=== PATIENT | female | born 1960 | race Caucasian/White ===

== ENCOUNTER 2020-06-04 16:37 | Inpatient (IN) | payer OTHER ==
[~2020-06-04 16:37] MED LIST: COLACE100 MG PO; CRANBERRY300 MG PO; METOPROLOL PO; PRILOSEC20 M1 PO; SOTALOL80 MG PO; SYNTHROID150 MCG PO; XARELTO20 MG PO; ZESTORETIC 10-1 EACH PO
[2020-06-04 17:40] LABS: BASOPHIL 0.3 % (0-2); EOSINOPHIL 1.2 % (0-5); HCT 36.9 % (37.0-47.0); LYMPHOCYTE 17.9 % (15-48); MCH 29.6 pg (25.0-31.0); MCHC 32.5 g/dL (32.0-36.0); MCV 90.9 fL (78.0-100.0); MONOCYTE 6.8 % (0-12); MPV 9.9 fL (6.0-9.5); NEUTROPHIL 73.4 % (41-80); NRBC 0; PLT 288 K/uL (150-400); RBC 4.06 M/uL (4.20-5.40); RDW 13.3 % (11.5-14.0)
[2020-06-04 17:45] LABS: BILIRUBIN NEGATIVE (NEGATIVE); BLOOD TRACE-LYSED Ery/uL (NEGATIVE); CLARITY CLEAR (CLEAR); COLOR YELLOW (YELLOW); GLUCOSE (U) NORMAL (NORMAL); LEUKOCYTES NEGATIVE Leu/uL (NEGATIVE); NITRITE NEGATIVE (NEGATIVE); PROTEIN NEGATIVE (NEGATIVE); UROBILINOGEN 0.2 mg/dL (0.2-1.0)
[2020-06-04 17:51] LABS: ALBUMIN 3.9 g/dL (3.4-5.0); BILIRUBIN - TOTAL 0.4 mg/dL (0.2-1.0); BUN/CREAT RATIO (CALC) 15.7 RATIO; CREATININE 0.83 mg/dL (0.51-0.95); POTASSIUM 3.9 mmol/L (3.5-5.1); TOTAL PROTEIN 7.9 g/dL (6.4-8.2)
[2020-06-04 17:53] LABS: BACTERIA 1+; SQUAMOUS EPITHELIAL CELLS RARE; URINARY RBC RARE; URINARY WBC RARE
[2020-06-04 21:41] LABS: CORONAVIRUS 2019 SARS-COV-2 NEGATIVE (NEGATIVE); INFLUENZA A NAA NEGATIVE (NEGATIVE)
[2020-06-04] MEDS ORDERED: LIPITOR 10MG TA10 MG PO (22:55)
[2020-06-04] MEDS ORDERED: NORVASC5 MG PO (22:55)
[2020-06-04] MEDS ORDERED: ASPIRIN EC81 MG PO (22:55)
[2020-06-04] MEDS ORDERED: METFORMIN HCL500 MG PO (22:56)
[2020-06-04] MEDS ORDERED: VITAMIN D3125 MC1 PO (22:58)
[2020-06-04] MEDS ORDERED: COLACE100 MG PO (22:59)
[2020-06-04] MEDS ORDERED: SYNTHROID125 MCG PO (22:59)
[2020-06-04] MEDS ORDERED: JANUVIA50 MG PO (23:00)
[2020-06-04] MEDS ORDERED: PRINIVIL20 MG PO (23:01)
[2020-06-05 05:55] LABS: BASOPHIL 0.3 % (0-2); EOSINOPHIL 1.2 % (0-5); HCT 35.4 % (37.0-47.0); HGB 11.4 g/dl (12.5-16.0); LYMPHOCYTE 18.4 % (15-48); MCH 29.5 pg (25.0-31.0); MCHC 32.2 g/dL (32.0-36.0); MCV 91.5 fL (78.0-100.0); MONOCYTE 5.9 % (0-12); MPV 10.1 fL (6.0-9.5); NEUTROPHIL 73.8 % (41-80); NRBC 0; PLT 281 K/uL (150-400); RBC 3.87 M/uL (4.20-5.40); RDW 13.6 % (11.5-14.0); WBC 11.1 K/uL (4.0-10.5)
[2020-06-05 06:25] LABS: BUN/CREAT RATIO (CALC) 17.1 RATIO; CREATININE 0.76 mg/dL (0.51-0.95); POTASSIUM 3.8 mmol/L (3.5-5.1)
--- NOTE | 2020-06-05 11:38 | NUR ---
PT LIVES ALONE; NO DME: DRIVES SELF;
--- NOTE | 2020-06-05 12:06 | NUR ---
PT DECLINES NEEDING D/C NEEDS;WILL CONTINUE TO FOLLOW
[2020-09-17] MEDS ORDERED: SYNTHROID150 MCG PO (13:14)
[2020-09-17] MEDS ORDERED: PRILOSEC OTC20 MG PO (13:15)
[2020-09-17] MEDS ORDERED: PROBIOTIC1 EACH PO (13:15)
== END 2020-06-05 18:28 | disposition home or self-care (01) | DRG 389 ==
LOC: FER 16:37 → FMS 21:03
PROVIDERS: Emergency Medicine; Nurse Practitioner; Nurse Practitioner Family; ADMIT Internal Medicine
PROC: 0D9670Z Drainage of Stomach with Drainage Device, Via Natural or Artificial Opening (ICD-10-PCS; principal; 2020-06-04)
DX: K56.609 Unspecified intestinal obstruction, unspecified as to partial versus complete obstruction (principal); Z68.41 Body mass index [BMI] 40.0-44.9, adult; R11.2 Nausea with vomiting, unspecified; E11.9 Type 2 diabetes mellitus without complications; I48.0 Paroxysmal atrial fibrillation; I10 Essential (primary) hypertension; E03.9 Hypothyroidism, unspecified; Z20.822 Contact with and (suspected) exposure to COVID-19; E04.9 Nontoxic goiter, unspecified; E66.01 Morbid (severe) obesity due to excess calories; K58.2 Mixed irritable bowel syndrome; F41.1 Generalized anxiety disorder; K21.9 Gastro-esophageal reflux disease without esophagitis; Z79.82 Long term (current) use of aspirin; Z87.891 Personal history of nicotine dependence; Z88.5 Allergy status to narcotic agent; Z79.899 Other long term (current) drug therapy; Z79.84 Long term (current) use of oral hypoglycemic drugs
CPT/HCPCS: 36415; 74018; 74250; 80048; 80053; 81001; 82150; 83690; 85025; C9113; J1170; J2405; J2550; J7030; Q9967; U0002

== ENCOUNTER 2020-07-06 00:52 | Emergency (ER) | payer OTHER ==
[~2020-07-06 00:52] MED LIST changes: +ASPIRIN EC81 MG PO; +JANUVIA50 MG PO; +LIPITOR 10MG TA10 MG PO; +METFORMIN HCL500 MG PO; +NORVASC5 MG PO; +PRINIVIL20 MG PO; +SYNTHROID125 MCG PO; +VITAMIN D3125 MC1 PO
[2020-07-06 01:55] LABS: BASOPHIL 0.5 % (0-2); EOSINOPHIL 2.7 % (0-5); HCT 34.3 % (37.0-47.0); HGB 11.2 g/dl (12.5-16.0); LYMPHOCYTE 29.2 % (15-48); MCH 29.9 pg (25.0-31.0); MCHC 32.7 g/dL (32.0-36.0); MCV 91.7 fL (78.0-100.0); MONOCYTE 7.2 % (0-12); MPV 9.8 fL (6.0-9.5); NEUTROPHIL 59.9 % (41-80); NRBC 0; PLT 238 K/uL (150-400); RBC 3.74 M/uL (4.20-5.40); RDW 13.4 % (11.5-14.0); WBC 10.7 K/uL (4.0-10.5)
[2020-07-06 02:13] LABS: ALBUMIN 3.7 g/dL (3.4-5.0); BILIRUBIN - TOTAL 0.2 mg/dL (0.2-1.0); BUN/CREAT RATIO (CALC) 18.9 RATIO; CREATININE 0.9 mg/dL (0.51-0.95); GLOBULIN (CALCULATION) 3.6 g/dL; POTASSIUM 3.9 mmol/L (3.5-5.1); TOTAL PROTEIN 7.3 g/dL (6.4-8.2)
[2020-09-17] MEDS ORDERED: SYNTHROID150 MCG PO (13:14)
[2020-09-17] MEDS ORDERED: PRILOSEC OTC20 MG PO (13:15)
[2020-09-17] MEDS ORDERED: PROBIOTIC1 EACH PO (13:15)
== END 2020-07-06 03:08 | disposition home or self-care (01) ==
LOC: FER 00:52
PROVIDERS: Emergency Medicine Emergency Medical Services
DX: T38.3X1A Poisoning by insulin and oral hypoglycemic [antidiabetic] drugs, accidental (unintentional), initial encounter (principal); I48.91 Unspecified atrial fibrillation; E11.9 Type 2 diabetes mellitus without complications; I10 Essential (primary) hypertension; Z87.19 Personal history of other diseases of the digestive system; Z88.5 Allergy status to narcotic agent; Z79.82 Long term (current) use of aspirin; Z79.899 Other long term (current) drug therapy; Z79.84 Long term (current) use of oral hypoglycemic drugs
CPT/HCPCS: 36415; 80053; 85025; 93005

== ENCOUNTER 2020-07-23 08:04 | Inpatient (IN) | payer OTHER ==
[2020-07-23 09:45] LABS: BASOPHIL 0.3 % (0-2); EOSINOPHIL 0.2 % (0-5); HCT 39.2 % (37.0-47.0); LYMPHOCYTE 13.4 % (15-48); MCH 29.8 pg (25.0-31.0); MCHC 33.2 g/dL (32.0-36.0); MCV 89.9 fL (78.0-100.0); MONOCYTE 4.5 % (0-12); MPV 9.8 fL (6.0-9.5); NEUTROPHIL 81.2 % (41-80); NRBC 0; PLT 307 K/uL (150-400); RBC 4.36 M/uL (4.20-5.40); RDW 13.3 % (11.5-14.0); WBC 13.9 K/uL (4.0-10.5)
[2020-07-23 09:55] LABS: ALBUMIN 4.2 g/dL (3.4-5.0); BILIRUBIN - TOTAL 0.4 mg/dL (0.2-1.0); BUN/CREAT RATIO (CALC) 21.6 RATIO; CREATININE 0.88 mg/dL (0.51-0.95); GLOBULIN (CALCULATION) 3.7 g/dL; POTASSIUM 4.2 mmol/L (3.5-5.1); TOTAL PROTEIN 7.9 g/dL (6.4-8.2)
[2020-07-23 10:03] LABS: LACTIC ACID 3.6 mmol/L (0.4-1.9)
--- NOTE | 2020-07-23 12:50 | NUR ---
16 GEORGIAN NG TUBE INSERTED TO RIGHT NARE BY RADHA FLOREZ. PATIENT TOLERATED PROCEDURE WELL, GASTRIC CONTENTS ASPIRATED AND STAT KUB OBTAINED. ONCE PLACEMENT VERIFIED, NG TUBE CONNECTED TO LOW INTERMITTENT WALL SUCTION WITH IMMEDIATE OUTPUT OF NEARLY 200ML OF GREENISH BROWN LIQUID, PATIENT REPORTED IMMEDIATE DECREASE OF PAIN AND NAUSEA
--- NOTE | 2020-07-23 16:45 | NUR ---
PATIENT REPORTED INCREASED PAIN AND NAUSEA. NO RECENT OUTPUT FROM NG TUBE. IRRIGATED NG TUBE WITH 60ML OF WATER AND OUTPUT INCREASED FROM NG TUBE. PATIENT REPORTS DECREASED NAUSEA AFTER IRRIGATING NG TUBE
[2020-07-23 21:32] LABS: BILIRUBIN NEGATIVE (NEGATIVE); BLOOD TRACE-LYSED Ery/uL (NEGATIVE); CLARITY CLEAR (CLEAR); COLOR YELLOW (YELLOW); GLUCOSE (U) NORMAL (NORMAL); LEUKOCYTES NEGATIVE Leu/uL (NEGATIVE); NITRITE NEGATIVE (NEGATIVE); PROTEIN NEGATIVE (NEGATIVE); UROBILINOGEN 0.2 mg/dL (0.2-1.0)
[2020-07-23 21:43] LABS: URINARY WBC RARE
[2020-07-24 06:11] LABS: HCT 33.1 % (37.0-47.0); HGB 11.1 g/dl (12.5-16.0); MCHC 33.5 g/dL (32.0-36.0); MCV 89.5 fL (78.0-100.0); RBC 3.7 M/uL (4.20-5.40); RDW 13.7 % (11.5-14.0); WBC 11.6 K/uL (4.0-10.5)
[2020-07-24 06:24] LABS: BUN/CREAT RATIO (CALC) 22.9 RATIO; CREATININE 0.83 mg/dL (0.51-0.95); POTASSIUM 3.7 mmol/L (3.5-5.1)
[2020-07-24 08:30] LABS: BILIRUBIN NEGATIVE (NEGATIVE); BLOOD TRACE-INTACT Ery/uL (NEGATIVE); CLARITY CLEAR (CLEAR); COLOR YELLOW (YELLOW); GLUCOSE (U) NORMAL (NORMAL); LEUKOCYTES NEGATIVE Leu/uL (NEGATIVE); NITRITE NEGATIVE (NEGATIVE); PROTEIN NEGATIVE (NEGATIVE); SPECIFIC GRAVITY >=1.030 (1.001-1.030); UROBILINOGEN 0.2 mg/dL (0.2-1.0)
[2020-07-24 08:50] LABS: BACTERIA TRACE; MUCOUS TRACE; SQUAMOUS EPITHELIAL CELLS RARE; URINARY WBC RARE
--- NOTE | 2020-07-24 12:59 | NUR ---
LATE ENTRY: ASSISTED WITH NG INSERTION ON 07/23/2020. THIS RN TO ROOM WITH PRIMARY RN, CHICO. I MEASURED FOR NG INSERTION, INSERTED NG TUBE TO PREVIOUS MEASUREMENT, SECURED TUBE. VISUALIZED GI (BROWN/GREEN) CONTENTS, CALLED FOR STAT KUB XRAY TO CONFIRM PLACEMENT. PATIENT TOLERATED WELL. WAS ABLE TO ADVANCE TUBE AND INSERT DURING FIRST ATTEMPT.
[2020-07-24 13:42] LABS: HCT 33.7 % (37.0-47.0); MCH 29.9 pg (25.0-31.0); MCHC 32.6 g/dL (32.0-36.0); MCV 91.6 fL (78.0-100.0); RBC 3.68 M/uL (4.20-5.40); RDW 13.6 % (11.5-14.0)
[2020-07-24 13:44] LABS: WBC 28.9 K/uL (4.0-10.5)
--- NOTE | 2020-07-24 13:51 | NUR ---
MD CEBALLOS NOTIFIED OF PATIENT WBC 29. REPEAT CBC IN AM
--- NOTE | 2020-07-24 15:50 | NUR ---
HR 121, 101/62. LACTIC ACID 7.2, WBC 28 COMPLAINING OF PAIN 10/10, PRESSURE TO PELVIS. DR TAVERAS IN COMMUNICATION WITH DR CEBALLOS. WILL BE TRANSFERRING PATIENT TO ICU.
[2020-07-24 16:02] LABS: HCT 31.9 % (37.0-47.0); HGB 10.5 g/dl (12.5-16.0); MCH 30.1 pg (25.0-31.0); MCHC 32.9 g/dL (32.0-36.0); MCV 91.4 fL (78.0-100.0); MPV 10.2 fL (6.0-9.5); RBC 3.49 M/uL (4.20-5.40); RDW 13.6 % (11.5-14.0)
[2020-07-24 16:09] LABS: WBC 26.9 K/uL (4.0-10.5)
--- NOTE | 2020-07-24 18:01 | NUR ---
1730-PATIENT TRANSFERRED TO ICU BED 3. FAMILY MEMBER NOTIFIED.
--- NOTE | 2020-07-24 18:18 | NUR ---
RECEIVED FROM MED SURG. REPORT FROM FREDIS. 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 NG TO INTERMITTENT LOW WALL SUCTION
[2020-07-25 06:07] LABS: HCT 24.4 % (37.0-47.0); HGB 8.1 g/dl (12.5-16.0); MCH 30.1 pg (25.0-31.0); MCHC 33.2 g/dL (32.0-36.0); MCV 90.7 fL (78.0-100.0); MPV 10.5 fL (6.0-9.5); RBC 2.69 M/uL (4.20-5.40); RDW 13.8 % (11.5-14.0); WBC 21.1 K/uL (4.0-10.5)
[2020-07-25 06:35] LABS: BUN/CREAT RATIO (CALC) 18.7 RATIO; CREATININE 1.5 mg/dL (0.51-0.95); POTASSIUM 3.6 mmol/L (3.5-5.1)
[2020-07-25 14:11] LABS: HCT 19.8 % (37.0-47.0)
--- NOTE | 2020-07-25 14:30 | NUR ---
07/25/20 Ms. Watts lives in a garage apartment behinf her mother's home. She has 2 daughters and 3 grandsons. Ms. Watts does not have any DME. She was independent in the home and community prior to admission. Dr. Mejia recommended HH at discharge. Unfortunately, none of the [facility] will accept her due to diversion or payment source. - Patient was advised to follow-up with her PCP anthony. - A report was given to Dr. Mejia.
[2020-07-25 14:39] LABS: HGB 6.5 g/dL (12.5-16.0)
[2020-07-26 04:43] LABS: HCT 24.8 % (37.0-47.0); HGB 8.4 g/dl (12.5-16.0); MCH 29.9 pg (25.0-31.0); MCHC 33.9 g/dL (32.0-36.0); MCV 88.3 fL (78.0-100.0); MPV 10.2 fL (6.0-9.5); RBC 2.81 M/uL (4.20-5.40); RDW 14.7 % (11.5-14.0)
[2020-07-26 05:00] LABS: BUN/CREAT RATIO (CALC) 23.3 RATIO; CREATININE 1.46 mg/dL (0.51-0.95); POTASSIUM 4.1 mmol/L (3.5-5.1)
[2020-07-27 05:52] LABS: HCT 21.8 % (37.0-47.0); HGB 7.2 g/dl (12.5-16.0); MCH 29.8 pg (25.0-31.0); MCV 90.1 fL (78.0-100.0); MPV 9.9 fL (6.0-9.5); RBC 2.42 M/uL (4.20-5.40); RDW 14.7 % (11.5-14.0); WBC 13.9 K/uL (4.0-10.5)
[2020-07-27 06:12] LABS: BUN/CREAT RATIO (CALC) 23.3 RATIO; CREATININE 1.2 mg/dL (0.51-0.95); POTASSIUM 3.9 mmol/L (3.5-5.1)
--- NOTE | 2020-07-27 09:54 | NUR ---
PT REMAINS NAUSEATED INTERMITTENLY, COOL RAG AND ZOFRAN GIVEN. PT UP TO BSC AND SINK TO BRUSH TEETH. PT DENIES PAIN OR DIZZINESS, STATES SHE DOES NOT WANT PAIN MEDICATION BECAUSE IT IS MAKING NAUSEA WORSE. STEADY GAIT, STAND BY ASSIST. REMAINS STRICT NPO. WILL RECIEVE BLOOD THIS AM.
[2020-07-27 20:52] LABS: HCT 28.2 % (37.0-47.0); HGB 9.3 g/dL (12.5-16.0)
[2020-07-28 05:40] LABS: HCT 29.4 % (37.0-47.0); MCH 29.3 pg (25.0-31.0); MCHC 32.3 g/dL (32.0-36.0); MCV 90.7 fL (78.0-100.0); MPV 9.9 fL (6.0-9.5); RBC 3.24 M/uL (4.20-5.40); RDW 15.4 % (11.5-14.0); WBC 12.9 K/uL (4.0-10.5)
[2020-07-28 05:43] LABS: HGB 9.5 g/dl (12.5-16.0)
[2020-07-28 06:01] LABS: BUN/CREAT RATIO (CALC) 23.7 RATIO; CREATININE 1.14 mg/dL (0.51-0.95); POTASSIUM 3.7 mmol/L (3.5-5.1)
[2020-07-29 06:52] LABS: BASOPHIL 0.3 % (0-2); EOSINOPHIL 3.3 % (0-5); HCT 28.4 % (37.0-47.0); HGB 9.5 g/dl (12.5-16.0); LYMPHOCYTE 12.2 % (15-48); MCH 29.8 pg (25.0-31.0); MCHC 33.5 g/dL (32.0-36.0); MONOCYTE 8.2 % (0-12); MPV 9.3 fL (6.0-9.5); NRBC 0; PLT 227 K/uL (150-400); RBC 3.19 M/uL (4.20-5.40); RDW 14.8 % (11.5-14.0); WBC 12.3 K/uL (4.0-10.5)
[2020-07-29 07:19] LABS: IRON % SATURATION 28.4 %SAT (20-50)
[2020-07-29 07:42] LABS: BUN/CREAT RATIO (CALC) 21.6 RATIO; CREATININE 1.02 mg/dL (0.51-0.95); POTASSIUM 3.5 mmol/L (3.5-5.1)
[2020-07-30 07:32] LABS: BASOPHIL 0.3 % (0-2); EOSINOPHIL 3.8 % (0-5); HCT 28.7 % (37.0-47.0); HGB 9.4 g/dl (12.5-16.0); LYMPHOCYTE 11.7 % (15-48); MCH 29.3 pg (25.0-31.0); MCHC 32.8 g/dL (32.0-36.0); MCV 89.4 fL (78.0-100.0); MONOCYTE 8.7 % (0-12); MPV 9.6 fL (6.0-9.5); NEUTROPHIL 73.9 % (41-80); NRBC 0; PLT 240 K/uL (150-400); RBC 3.21 M/uL (4.20-5.40); RDW 14.9 % (11.5-14.0); WBC 13.4 K/uL (4.0-10.5)
[2020-07-30 07:54] LABS: BUN/CREAT RATIO (CALC) 18.2 RATIO; CREATININE 0.88 mg/dL (0.51-0.95); MAGNESIUM 1.8 mg/dL (1.8-2.4); POTASSIUM 3.2 mmol/L (3.5-5.1)
[2020-07-30 11:23] LABS: BILIRUBIN 1+ mg/dL (NEGATIVE); BLOOD 1+ Ery/uL (NEGATIVE); CLARITY CLEAR (CLEAR); COLOR YELLOW (YELLOW); GLUCOSE (U) NORMAL (NORMAL); LEUKOCYTES TRACE Leu/uL (NEGATIVE); NITRITE NEGATIVE (NEGATIVE); PROTEIN 1+ mg/dL (NEGATIVE); SPECIFIC GRAVITY 1.025 (1.001-1.030)
[2020-07-30 11:31] LABS: BACTERIA TRACE; MUCOUS TRACE; SQUAMOUS EPITHELIAL CELLS 20-50; URINARY RBC RARE
[2020-07-30] MEDS ORDERED: CEFDINIR300 MG PO (13:24)
[2020-07-30] MEDS ORDERED: TRAMADOL HCL50 MG PO (13:24)
[2020-09-17] MEDS ORDERED: SYNTHROID150 MCG PO (13:14)
[2020-09-17] MEDS ORDERED: PRILOSEC OTC20 MG PO (13:15)
[2020-09-17] MEDS ORDERED: PROBIOTIC1 EACH PO (13:15)
== END 2020-07-30 18:40 | disposition home or self-care (01) | DRG 329 ==
LOC: FER 08:04 → FMS 11:01 → FICU 07-24 16:10 → FMS 07-28 11:58
PROVIDERS: Emergency Medicine; Internal Medicine; Nurse Practitioner; Surgery; ADMIT Hospitalist
PROC: 0DN80ZZ Release Small Intestine, Open Approach (ICD-10-PCS; 2020-07-24)
PROC: 0DB80ZZ Excision of Small Intestine, Open Approach (ICD-10-PCS; principal; 2020-07-24 07:00)
PROC: 30233N1 Transfusion of Nonautologous Red Blood Cells into Peripheral Vein, Percutaneous Approach (ICD-10-PCS; 2020-07-25)
PROC: 30233N1 Transfusion of Nonautologous Red Blood Cells into Peripheral Vein, Percutaneous Approach (ICD-10-PCS; 2020-07-27)
DX: K56.51 Intestinal adhesions [bands], with partial obstruction (principal); R65.11 Systemic inflammatory response syndrome (SIRS) of non-infectious origin with acute organ dysfunction; N17.9 Acute kidney failure, unspecified; E87.2 Acidosis; D62 Acute posthemorrhagic anemia; B37.49 Other urogenital candidiasis; Z68.41 Body mass index [BMI] 40.0-44.9, adult; Z20.822 Contact with and (suspected) exposure to COVID-19; I10 Essential (primary) hypertension; E03.9 Hypothyroidism, unspecified; I95.9 Hypotension, unspecified; K56.7 Ileus, unspecified; E66.01 Morbid (severe) obesity due to excess calories; I48.0 Paroxysmal atrial fibrillation; B37.9 Candidiasis, unspecified; E11.9 Type 2 diabetes mellitus without complications; E78.00 Pure hypercholesterolemia, unspecified; Z90.49 Acquired absence of other specified parts of digestive tract; Z90.710 Acquired absence of both cervix and uterus; Z88.5 Allergy status to narcotic agent; Z79.82 Long term (current) use of aspirin; Z79.84 Long term (current) use of oral hypoglycemic drugs; Z79.899 Other long term (current) drug therapy; Z87.891 Personal history of nicotine dependence; Z88.6 Allergy status to analgesic agent; Z90.2 Acquired absence of lung [part of]
CPT/HCPCS: 36415; 36430; 74018; 80048; 80053; 81001; 82607; 82962; 83540; 83550; 83605; 83690; 83735; 85014; 85018; 85025; 86850; 86900; 86901; 86922; 87040; 87088; 93005; C1765; C9113; J0694; J0780; J1170; J2250; J2405; J2543; J2550; J2704; J2710; J3010; J7030; J7040; J7050; J7120; P9016; Q0162; Q9967; U0002

== ENCOUNTER 2020-08-16 14:50 | Emergency (ER) | payer OTHER ==
[~2020-08-16 14:50] MED LIST changes: +CEFDINIR300 MG PO; +TRAMADOL HCL50 MG PO
[2020-09-17] MEDS ORDERED: SYNTHROID150 MCG PO (13:14)
[2020-09-17] MEDS ORDERED: PROBIOTIC1 EACH PO (13:15)
[2020-09-17] MEDS ORDERED: PRILOSEC OTC20 MG PO (13:15)
== END 2020-08-16 17:44 | disposition home or self-care (01) ==
LOC: FER 14:50
DX: K59.00 Constipation, unspecified (principal); I10 Essential (primary) hypertension; E11.9 Type 2 diabetes mellitus without complications; Z98.890 Other specified postprocedural states
CPT/HCPCS: 74022

== ENCOUNTER → 2020-09-24 | Day surgery (SDC) | payer OTHER ==
[~2020-09-24] VITALS: Ht 172.7 cm; Wt 115.7 kg
[~2020-09-24] MED LIST changes: +PRILOSEC OTC20 MG PO; +PROBIOTIC1 EACH PO
== END | disposition home or self-care (01) ==
LOC: FAS 09:45
DX: D12.3 Benign neoplasm of transverse colon (principal); K59.00 Constipation, unspecified; R11.0 Nausea; F41.9 Anxiety disorder, unspecified; K21.9 Gastro-esophageal reflux disease without esophagitis; I10 Essential (primary) hypertension; E78.00 Pure hypercholesterolemia, unspecified; E03.9 Hypothyroidism, unspecified; E11.9 Type 2 diabetes mellitus without complications; Z88.5 Allergy status to narcotic agent; Z79.82 Long term (current) use of aspirin; Z90.49 Acquired absence of other specified parts of digestive tract; Z90.710 Acquired absence of both cervix and uterus; Z87.891 Personal history of nicotine dependence; Z80.0 Family history of malignant neoplasm of digestive organs
CPT/HCPCS: J2704; J7120